=== PATIENT | male | born 1940 | race Caucasian/White ===

== ENCOUNTER 2021-12-22 15:05 | Inpatient (IN) ==
[2021-12-22] MEDS ORDERED: Naloxone 0.4 MG/ML INJ IVP PRN (21:43)
[2021-12-22] MEDS ORDERED: Acetaminophen 325 MG TABLET PO PRN (21:43)
[2021-12-22] MEDS ORDERED: Ondansetron 4 MG/2 ML VIAL IVP PRN (21:43)
[2021-12-22] MEDS ORDERED: Melatonin 3 MG TABLET PO PRN (21:43)
[2021-12-22] MEDS ORDERED: Ipratropium/Albuterol Neb 3 ML IH PRN (21:47)
[2021-12-22] MEDS ORDERED: Albuterol 2.5 MG/3 ML NEBULIZER IH PRN (21:47)
[2021-12-22] MEDS ORDERED: Benzonatate 100 MG CAPSULE PO PRN (21:48)
[2021-12-23] MEDS ORDERED: *HR* Dextrose 50 % in Water (Syg) 50 ML SYRINGE IVP PRN ×2 (07:10→19:11)
[2021-12-23] MEDS ORDERED: D5% in Water 1,000 ML IVC PRN ×2 (07:10→19:11)
[2021-12-23] MEDS ORDERED: Dextrose Gel 15 GM/37.5 ML TUBE PO PRN ×4 (07:10→19:11)
[2021-12-23] MEDS ORDERED: Remdesivir 200 MG in 0.9 % Sodium Chloride 100 ML IVPB ONE (07:25)
[2021-12-23 07:55] LABS: Basophils % 0.1 %; Hematocrit 41.6 % (37.5-50.1); Immature Granulocytes % 0.5 % (0-4); Lymphocytes # 0.9 K/mcL (0.6-4.6); Lymphocytes % 9.9 %; Mean Corpuscular HGB Conc 31.3 g/dL (31.6-35.5); Mean Corpuscular Hemoglobin 28.3 pg (28.0-33.3); Mean Corpuscular Volume 90.4 fL (83.0-100.0); Mean Platelet Volume 9.6 fL (9.4-12.4); Monocytes # 0.5 K/mcL (0.0-1.3); Monocytes % 5.2 %; Neutrophils # 7.5 K/mcL (1.6-8.9); Platelet Count 224 K/mcL (140-400); Red Cell Distribution Width 13.2 % (11.5-14.5); Segmented Neutrophils % 84.3 %; White Blood Count 8.9 K/mcL (4.3-11.1)
[2021-12-23 08:09] LABS: INR 1.2; Prothrombin Time 13.5 Seconds (9.4-12.1)
[2021-12-23 08:15] LABS: Alanine Aminotransferase 19 Units/L (7-52); Albumin 3.9 g/dL (3.5-5.7); Albumin/Globulin Ratio 1.4 (1.1-2.2); Alkaline Phosphatase 58 Units/L (34-104); Aspartate Amino Transferase 29 Units/L (13-39); BUN/Creatinine Ratio 19 (6-26); Bilirubin,Total 0.4 mg/dL (0.3-1.0); Blood Urea Nitrogen 16 mg/dL (8-23); Calcium 8.8 mg/dL (8.6-10.3); Carbon Dioxide 19 mEq/L (23-29); Chloride 104 mEq/L (98-107); Globulin 2.8 g/dL (2.4-3.5); Glucose 173 mg/dL (70-105); Magnesium 1.7 mg/dL (1.6-2.6); Osmolality,Calculated 293 (280-300); Phosphorous 2.7 mg/dL (2.7-4.5); Potassium 4.4 mEq/L (3.5-5.1); Sodium 139 mEq/L (136-145); Total Protein 6.7 g/dL (6.4-8.9); eGFR For African Americans > 60 (> 60); eGFR For Non-African Americans > 60 (> 60)
[2021-12-23] MEDS ORDERED: Vancomycin 1,000 MG VIAL ONE (09:53)
[2021-12-23] MEDS ORDERED: Ethanol\\Acetic Acid\\Na Ace\\Ben 1,000 ML IRRIG.SOLN IR ONE (09:53)
[2021-12-23] MEDS ORDERED: Insulin LISPRO 300 UNITS/3 ML VIAL SUBQ SCH (12:00)
[2021-12-23] MEDS ORDERED: *HR* FentaNYL (PF) 100 MCG/2 ML VIAL IVP PRN ×2 (14:04→19:11)
[2021-12-23] MEDS ORDERED: *HR* HYDROmorphone PF 0.5 MG/0.5 ML SYRINGE IVP PRN ×2 (14:04→19:11)
[2021-12-23] MEDS ORDERED: *HR* Propofol 200 MG/20 ML VIAL IVP ONE (14:06)
[2021-12-23] MEDS ORDERED: Lidocaine -MPF 2% 5 ML VIAL ONE (14:07)
[2021-12-23] MEDS ORDERED: *HR* Succinylcholine 200 MG/10 ML VIAL IVP ONE (14:07)
[2021-12-23] MEDS ORDERED: Ondansetron 4 MG/2 ML VIAL ONE (14:07)
[2021-12-23] MEDS ORDERED: Lidocaine HCL 4 ML Topical Solution (Laryng-O-Jet Kit Sterile Pak) TP ONE (14:07)
[2021-12-23] MEDS ORDERED: *HR* Rocuronium Bromide 50 MG/5 ML VIAL ONE (14:07)
[2021-12-23] MEDS ORDERED: EPHEDrine 50 MG/ML VIAL ONE (15:01)
[2021-12-23] MEDS ORDERED: *HR* Phenylephrine 10 MG/ML VIAL ONE (15:03)
[2021-12-23] MEDS ORDERED: *HR* Vasopressin 20 UNIT/ML VIAL ONE (15:05)
[2021-12-23] MEDS ORDERED: Albumin Human 5% 0 GM/0 ML IV.SOLN ONE (15:05)
[2021-12-23] MEDS ORDERED: *HR* Etomidate 40 MG/20 ML VIAL IVP ONE (15:42)
[2021-12-23] MEDS ORDERED: *HR* HYDROMORPHONE 2 MG/ML VIAL ONE (16:51)
[2021-12-23] MEDS ORDERED: Sugammadex Sodium 200 MG/2 ML VIAL IV ONE (16:57)
[2021-12-23] MEDS ORDERED: Naloxone 0.4 MG/ML INJ IVP PRN (19:11)
[2021-12-23] MEDS ORDERED: *HR* Promethazine 25 MG/ML VIAL IM PRN (19:11)
[2021-12-23] MEDS ORDERED: Acetaminophen 325 MG TABLET PO PRN (19:11)
[2021-12-23] MEDS ORDERED: Benzonatate 100 MG CAPSULE PO PRN (19:11)
[2021-12-23] MEDS ORDERED: Ipratropium/Albuterol Neb 3 ML IH PRN (19:11)
[2021-12-23] MEDS ORDERED: Melatonin 3 MG TABLET PO PRN (19:11)
[2021-12-23] MEDS ORDERED: Albuterol 2.5 MG/3 ML NEBULIZER IH PRN (19:11)
[2021-12-23] MEDS ORDERED: Ondansetron 4 MG/2 ML VIAL IVP PRN (19:11)
[2021-12-23] MEDS: Ringers Solution, Lactated 1,000 ML IVC SCH (20:21)
[2021-12-23] MEDS: CeFAZolin 2 GM/120 ML BAG IVPB SCH (23:46)
[2021-12-24] MEDS ORDERED: Insulin LISPRO 300 UNITS/3 ML VIAL SUBQ SCH
[2021-12-24 05:59] LABS: Basophils % 0.1 %; Hematocrit 39.5 % (37.5-50.1); Hemoglobin 12.8 g/dL (12.9-16.9); Immature Granulocytes % 0.2 % (0-4); Lymphocytes # 1.1 K/mcL (0.6-4.6); Lymphocytes % 11.1 %; Mean Corpuscular HGB Conc 32.4 g/dL (31.6-35.5); Mean Corpuscular Hemoglobin 28.8 pg (28.0-33.3); Mean Corpuscular Volume 88.8 fL (83.0-100.0); Mean Platelet Volume 9.5 fL (9.4-12.4); Monocytes # 0.5 K/mcL (0.0-1.3); Monocytes % 5.4 %; Neutrophils # 7.9 K/mcL (1.6-8.9); Platelet Count 236 K/mcL (140-400); Red Blood Count 4.45 M/mcL (4.19-5.50); Red Cell Distribution Width 13.2 % (11.5-14.5); Segmented Neutrophils % 83.2 %; White Blood Count 9.5 K/mcL (4.3-11.1)
[2021-12-24 06:18] LABS: Alanine Aminotransferase 17 Units/L (7-52); Albumin 3.5 g/dL (3.5-5.7); Albumin/Globulin Ratio 1.3 (1.1-2.2); Alkaline Phosphatase 51 Units/L (34-104); Aspartate Amino Transferase 28 Units/L (13-39); BUN/Creatinine Ratio 20 (6-26); Bilirubin,Direct 0.1 mg/dL (0.0-0.2); Bilirubin,Indirect 0.3 mg/dL (0.0-1.0); Bilirubin,Total 0.4 mg/dL (0.3-1.0); Blood Urea Nitrogen 19 mg/dL (8-23); Calcium 8.8 mg/dL (8.6-10.3); Carbon Dioxide 19 mEq/L (23-29); Chloride 108 mEq/L (98-107); Globulin 2.7 g/dL (2.4-3.5); Glucose 237 mg/dL (70-105); Osmolality,Calculated 300 (280-300); Potassium 4.8 mEq/L (3.5-5.1); Sodium 140 mEq/L (136-145); Total Protein 6.2 g/dL (6.4-8.9); eGFR For African Americans > 60 (> 60); eGFR For Non-African Americans > 60 (> 60)
[2021-12-24] MEDS ORDERED: Remdesivir 100 MG in 0.9 % Sodium Chloride 100 ML IVPB SCH (08:00)
[2021-12-24] MEDS: CeFAZolin 2 GM/120 ML BAG IVPB SCH (09:36)
[2021-12-24] MEDS: Ringers Solution, Lactated 1,000 ML IVC SCH (09:36)
[2021-12-24] MEDS: Insulin LISPRO 300 UNITS/3 ML VIAL SUBQ SCH ×4 (09:47→21:10)
[2021-12-24] MEDS: Remdesivir 100 MG in 0.9 % Sodium Chloride 100 ML IVPB SCH (11:58)
[2021-12-24] MEDS ORDERED: E-Z-PAQUE (BARIUM SULF) SUSP 1 BOTTLE PO ONE (14:21)
[2021-12-24] MEDS ORDERED: E-Z-HD (BARIUM SULF) SUSPENSION PO ONE (14:21)
[2021-12-24] MEDS: Aspirin 325 MG TABLET PO SCH (18:19)
[2021-12-25 09:11] LABS: Basophils % 0.2 %; Hematocrit 39.2 % (37.5-50.1); Hemoglobin 12.6 g/dL (12.9-16.9); Immature Granulocytes % 0.7 % (0-4); Lymphocytes # 0.9 K/mcL (0.6-4.6); Lymphocytes % 7.9 %; Mean Corpuscular HGB Conc 32.1 g/dL (31.6-35.5); Mean Corpuscular Hemoglobin 28.2 pg (28.0-33.3); Mean Corpuscular Volume 87.7 fL (83.0-100.0); Mean Platelet Volume 9.7 fL (9.4-12.4); Monocytes # 0.7 K/mcL (0.0-1.3); Monocytes % 6.1 %; Neutrophils # 9.3 K/mcL (1.6-8.9); Platelet Count 265 K/mcL (140-400); Red Blood Count 4.47 M/mcL (4.19-5.50); Red Cell Distribution Width 13.6 % (11.5-14.5); Segmented Neutrophils % 85.1 %; White Blood Count 10.9 K/mcL (4.3-11.1)
[2021-12-25 09:33] LABS: Alanine Aminotransferase 18 Units/L (7-52); Albumin 3.3 g/dL (3.5-5.7); Albumin/Globulin Ratio 1.2 (1.1-2.2); Alkaline Phosphatase 61 Units/L (34-104); Aspartate Amino Transferase 31 Units/L (13-39); BUN/Creatinine Ratio 31 (6-26); Bilirubin,Direct 0.2 mg/dL (0.0-0.2); Bilirubin,Indirect 0.2 mg/dL (0.0-1.0); Bilirubin,Total 0.4 mg/dL (0.3-1.0); Blood Urea Nitrogen 25 mg/dL (8-23); Calcium 9.2 mg/dL (8.6-10.3); Carbon Dioxide 17 mEq/L (23-29); Chloride 111 mEq/L (98-107); Globulin 2.8 g/dL (2.4-3.5); Glucose 275 mg/dL (70-105); Osmolality,Calculated 310 (280-300); Potassium 4.8 mEq/L (3.5-5.1); Sodium 143 mEq/L (136-145); Total Protein 6.1 g/dL (6.4-8.9); eGFR For African Americans > 60 (> 60); eGFR For Non-African Americans > 60 (> 60)
[2021-12-25] MEDS: Aspirin 325 MG TABLET PO SCH (09:40)
[2021-12-25] MEDS: Remdesivir 100 MG in 0.9 % Sodium Chloride 100 ML IVPB SCH (09:40)
[2021-12-25] MEDS: Insulin LISPRO 300 UNITS/3 ML VIAL SUBQ SCH ×3 (13:52→17:22)
[2021-12-25] MEDS ORDERED: Acetaminophen IV 1,000 MG/100 ML BAG IVPB ONE (16:51)
[2021-12-26 05:14] LABS: Basophils % 0.3 %; Immature Granulocytes % 5.8 % (0-4); Lymphocytes # 0.7 K/mcL (0.6-4.6); Lymphocytes % 6.3 %; Mean Corpuscular HGB Conc 32.5 g/dL (31.6-35.5); Mean Corpuscular Hemoglobin 28.9 pg (28.0-33.3); Mean Corpuscular Volume 88.9 fL (83.0-100.0); Mean Platelet Volume 10.1 fL (9.4-12.4); Monocytes # 0.7 K/mcL (0.0-1.3); Monocytes % 5.8 %; Platelet Count 336 K/mcL (140-400); Segmented Neutrophils % 81.8 %; White Blood Count 11.3 K/mcL (4.3-11.1)
[2021-12-26 05:21] LABS: Neutrophils # 9.2 K/mcL (1.6-8.9)
[2021-12-26 05:36] LABS: Alanine Aminotransferase 19 Units/L (7-52); Albumin 3.3 g/dL (3.5-5.7); Albumin/Globulin Ratio 1.1 (1.1-2.2); Alkaline Phosphatase 64 Units/L (34-104); Aspartate Amino Transferase 29 Units/L (13-39); BUN/Creatinine Ratio 43 (6-26); Bilirubin,Direct 0.1 mg/dL (0.0-0.2); Bilirubin,Indirect 0.4 mg/dL (0.0-1.0); Bilirubin,Total 0.5 mg/dL (0.3-1.0); Blood Urea Nitrogen 36 mg/dL (8-23); C-Reactive Protein > 300 mg/L (Less than 10); Calcium 9.4 mg/dL (8.6-10.3); Carbon Dioxide 17 mEq/L (23-29); Chloride 114 mEq/L (98-107); Globulin 3.1 g/dL (2.4-3.5); Glucose 322 mg/dL (70-105); Osmolality,Calculated 329 (280-300); Potassium 4.8 mEq/L (3.5-5.1); Sodium 149 mEq/L (136-145); Total Protein 6.4 g/dL (6.4-8.9); eGFR For African Americans > 60 (> 60); eGFR For Non-African Americans > 60 (> 60)
[2021-12-26 05:39] LABS: Platelet Estimate Normal (Normal)
[2021-12-26] MEDS: Insulin LISPRO 300 UNITS/3 ML VIAL SUBQ SCH ×5 (07:12→23:50)
[2021-12-26] MEDS: Remdesivir 100 MG in 0.9 % Sodium Chloride 100 ML IVPB SCH (08:11)
[2021-12-26] MEDS: Aspirin 325 MG TABLET PO SCH (08:17)
[2021-12-26] MEDS ORDERED: Acetaminophen 325 MG TABLET PO SCH (08:30)
[2021-12-26] MEDS: Acetaminophen IV 1,000 MG/100 ML BAG IVPB SCH ×3 (10:12→23:51)
[2021-12-26] MEDS ORDERED: Ringers Solution, Lactated 1,000 ML IVC SCH (13:30)
[2021-12-26] MEDS ORDERED: *HR* LORazepam 2 MG/ML VIAL IVP ONE (17:06)
[2021-12-26] MEDS ORDERED: Oxymetazoline Nasal SPRAY BOTTLE 15ML NS PRN (18:35)
[2021-12-26] MEDS ORDERED: Oxymetazoline Nasal SPRAY BOTTLE 15ML NS STA (18:35)
[2021-12-26] MEDS: *HR* HYDROmorphone (PF) 1 MG/ML SYRINGE IVP PRN (21:31)
[2021-12-27] MEDS: *HR* HYDROmorphone (PF) 1 MG/ML SYRINGE IVP PRN (02:26)
[2021-12-27 02:41] LABS: Basophils # 0.1 K/mcL (0.0-0.2); Basophils % 0.6 %; Hematocrit 43.5 % (37.5-50.1); Hemoglobin 13.7 g/dL (12.9-16.9); Immature Granulocytes % 1.8 % (0-4); Lymphocytes # 0.7 K/mcL (0.6-4.6); Lymphocytes % 5.7 %; Mean Corpuscular HGB Conc 31.5 g/dL (31.6-35.5); Mean Corpuscular Hemoglobin 28.5 pg (28.0-33.3); Mean Corpuscular Volume 90.6 fL (83.0-100.0); Mean Platelet Volume 10.2 fL (9.4-12.4); Monocytes % 7.9 %; Neutrophils # 10.1 K/mcL (1.6-8.9); Platelet Count 399 K/mcL (140-400); Red Cell Distribution Width 14.1 % (11.5-14.5); White Blood Count 12.1 K/mcL (4.3-11.1)
[2021-12-27 02:49] LABS: Albumin 3.4 g/dL (3.5-5.7); Albumin/Globulin Ratio 1.1 (1.1-2.2); BUN/Creatinine Ratio 43 (6-26); Bilirubin,Direct 0.1 mg/dL (0.0-0.2); Bilirubin,Indirect 0.3 mg/dL (0.0-1.0); Bilirubin,Total 0.4 mg/dL (0.3-1.0); Blood Urea Nitrogen 51 mg/dL (8-23); Calcium 10.1 mg/dL (8.6-10.3); Carbon Dioxide 25 mEq/L (23-29); Chloride 115 mEq/L (98-107); Globulin 3.2 g/dL (2.4-3.5); Glucose 351 mg/dL (70-105); Osmolality,Calculated 344 (280-300); Potassium 4.9 mEq/L (3.5-5.1); Sodium 153 mEq/L (136-145); Total Protein 6.6 g/dL (6.4-8.9); eGFR For African Americans > 60 (> 60); eGFR For Non-African Americans 59 (> 60)
[2021-12-27] MEDS ORDERED: Morphine Sulfate 2 MG/ML SYRINGE IVP ONE (03:27)
[2021-12-27] MEDS ORDERED: *HR* Heparin 5,000 UNIT/ML VIAL IVP PRN ×6 (03:34→14:37)
[2021-12-27] MEDS ORDERED: *HR* Heparin 5,000 UNIT/ML VIAL IVP ONE ×3 (03:34→14:37)
[2021-12-27] MEDS ORDERED: Heparin 25,000UNIT/250ML 1/2NS 25,000 UNIT/250 ML IV.SOLN IVC SCH ×2 (03:45→14:15)
[2021-12-27 05:52] LABS: Hematocrit 43.9 % (37.5-50.1); Hemoglobin 13.7 g/dL (12.9-16.9); Mean Corpuscular HGB Conc 31.2 g/dL (31.6-35.5); Mean Corpuscular Hemoglobin 28.4 pg (28.0-33.3); Mean Corpuscular Volume 90.9 fL (83.0-100.0); Mean Platelet Volume 10.3 fL (9.4-12.4); Platelet Count 385 K/mcL (140-400); Red Blood Count 4.83 M/mcL (4.19-5.50); Red Cell Distribution Width 14.2 % (11.5-14.5); White Blood Count 13.7 K/mcL (4.3-11.1)
[2021-12-27 05:55] LABS: Activated Partial Thrombo Time 23.3 Seconds (26.0-36.0)
[2021-12-27 05:56] LABS: Heparin anti-factor XA UFH < 0.04 IU/mL (0.30-0.70)
[2021-12-27 05:57] LABS: INR 1.2; Prothrombin Time 13.6 Seconds (9.4-12.1)
[2021-12-27] MEDS: Insulin LISPRO 300 UNITS/3 ML VIAL SUBQ SCH ×3 (06:28→17:59)
[2021-12-27] MEDS: Acetaminophen IV 1,000 MG/100 ML BAG IVPB SCH ×3 (10:53→23:53)
[2021-12-27] MEDS: Piperacillin/Tazobactam 3.375 GM in 0.9 % Sodium Chloride Mini Bag 100 ML IVPB SCH ×3 (12:24→23:53)
[2021-12-27] MEDS ORDERED: Albumin 25% 25gram/100mL 25 GM/100 ML IV.SOLN IVPB ONE (15:20)
[2021-12-27 15:34] LABS: Calcium 9.4 mg/dL (8.6-10.3); Potassium 6.1 mEq/L (3.5-5.1)
[2021-12-27] MEDS ORDERED: Dexmedetomidine HCl 400 MCG/100 ML MLS IVC ONE (15:59)
[2021-12-27] MEDS ORDERED: *HR* Etomidate 20 MG/10 ML AMPUL IVP ONE (16:00)
[2021-12-27] MEDS: Norepinephrine 4 MG/254 ML IV.SOLN IVC SCH (16:05)
[2021-12-27] MEDS ORDERED: Phenylephrine 10 MG in 0.9 % Sodium Chloride 250 ML IVC SCH (16:15)
[2021-12-27] MEDS ORDERED: Insulin Human Regular 10 UNIT in 0.9 % Sodium Chloride 10 ML IV ONE (16:30)
[2021-12-27] MEDS ORDERED: *HR* Dextrose 50 % in Water (Syg) 50 ML SYRINGE IVP ONE (16:30)
[2021-12-27] MEDS: Heparin 25,000UNIT/250ML 1/2NS 25,000 UNIT/250 ML IV.SOLN IVC SCH (16:48)
[2021-12-27] MEDS: Calcium Gluconate 1gm/50mL 1 GM/50 ML BAG IVPB SCH ×2 (16:54→17:45)
[2021-12-27 16:57] LABS: Basophils # 0.1 K/mcL (0.0-0.2); Basophils % 0.3 %; Hematocrit 44.3 % (37.5-50.1); Hemoglobin 13.2 g/dL (12.9-16.9); Immature Granulocytes % 5.3 % (0-4); Lymphocytes # 0.7 K/mcL (0.6-4.6); Lymphocytes % 4.2 %; Mean Corpuscular HGB Conc 29.8 g/dL (31.6-35.5); Mean Corpuscular Hemoglobin 28.4 pg (28.0-33.3); Mean Corpuscular Volume 95.3 fL (83.0-100.0); Mean Platelet Volume 10.3 fL (9.4-12.4); Monocytes % 6.1 %; Neutrophils # 13.7 K/mcL (1.6-8.9); Nucleated Red Blood Cells 0.2 /100 WBC (0); Platelet Count 386 K/mcL (140-400); Red Blood Count 4.65 M/mcL (4.19-5.50); Red Cell Distribution Width 14.6 % (11.5-14.5); Segmented Neutrophils % 84.1 %; White Blood Count 16.3 K/mcL (4.3-11.1)
[2021-12-27] MEDS ORDERED: *HR* Midazolam HCl 2 MG/2 ML VIAL ONE (17:00)
[2021-12-27] MEDS: D5% in Water 1,000 ML IVC SCH (17:10)
[2021-12-27] MEDS: Dexmedetomidine HCl 400 MCG/100 ML MLS IVC SCH (17:15)
[2021-12-27 17:20] LABS: ABG Base Excess 3 mEq/L (-2 to 3); ABG HCO3 29 mEq/L (21-27); ABG Oxygen Saturation 100 % (95-98); ABG PCO2 46 mmHg (35-45); ABG PO2 253 mmHg (85-104); ABG TCO2 30 mEq/L (20-26); Blood Gas Modality ASSIST CONTROL; Blood Gas VT 500 cc
[2021-12-27] MEDS: FentaNYL (PF) 1,000 MCG/100 ML IV.SOLN IVC SCH (17:36)
[2021-12-27] MEDS: Doxycycline 100 MG in 0.9 % Sodium Chloride Mini Bag 100 ML IVPB SCH (17:45)
[2021-12-27 17:51] LABS: Platelet Estimate Normal (Normal)
[2021-12-27] MEDS: Carbidopa/Levodopa 25/100 TABLET GTUBE SCH (19:45)
[2021-12-27] MEDS: Insulin DETEMIR 100 UNIT/ML X5UNITS SUBQ SCH (19:45)
[2021-12-27] MEDS ORDERED: Artificial Tears SOLN 15 ML BOTTLE BOTH EYES PRN (19:47)
[2021-12-27] MEDS: Artificial Tears SOLN 15 ML BOTTLE BOTH EYES SCH ×2 (20:26→23:51)
[2021-12-27] MEDS: Chlorhexidine Rinse 15 ML MOUTHWASH MM SCH (20:27)
[2021-12-27 20:47] LABS: ABG Base Excess -1 mEq/L (-2 to 3); ABG HCO3 25 mEq/L (21-27); ABG Oxygen Saturation 99 % (95-98); ABG PCO2 46 mmHg (35-45); ABG PH 7.35 pH Units (7.32-7.45); ABG PO2 122 mmHg (85-104); ABG TCO2 26 mEq/L (20-26); Blood Gas VT 500 cc
[2021-12-27 21:42] LABS: Calcium 8.3 mg/dL (8.6-10.3); Potassium 4.9 mEq/L (3.5-5.1)
[2021-12-27 23:27] LABS: Troponin I 0.3 ng/mL (< 0.04)
[2021-12-27] MEDS: Phenylephrine 50 MG in 0.9 % Sodium Chloride 250 ML IVC SCH (23:51)
[2021-12-28] MEDS: Insulin LISPRO 300 UNITS/3 ML VIAL SUBQ SCH ×4 (00:18→17:37)
[2021-12-28] MEDS: Carbidopa/Levodopa 25/100 TABLET GTUBE SCH ×5 (00:18→20:14)
[2021-12-28] MEDS: FentaNYL (PF) 1,000 MCG/100 ML IV.SOLN IVC SCH ×2 (03:22→14:22)
[2021-12-28] MEDS: D5% in Water 1,000 ML IVC SCH ×3 (03:23→23:33)
[2021-12-28] MEDS: Dexmedetomidine HCl 400 MCG/100 ML MLS IVC SCH ×4 (03:45→19:29)
[2021-12-28] MEDS: Artificial Tears SOLN 15 ML BOTTLE BOTH EYES SCH ×7 (03:47→23:35)
[2021-12-28 04:55] LABS: Hematocrit 42.6 % (37.5-50.1); Mean Corpuscular HGB Conc 30.5 g/dL (31.6-35.5); Mean Corpuscular Hemoglobin 28.6 pg (28.0-33.3); Mean Corpuscular Volume 93.6 fL (83.0-100.0); Mean Platelet Volume 10.8 fL (9.4-12.4); Nucleated Red Blood Cells 0.6 /100 WBC (0); Platelet Count 256 K/mcL (140-400); Red Blood Count 4.55 M/mcL (4.19-5.50); Red Cell Distribution Width 14.6 % (11.5-14.5); White Blood Count 17.3 K/mcL (4.3-11.1)
[2021-12-28 05:00] LABS: Heparin anti-factor XA UFH 0.54 IU/mL (0.30-0.70)
[2021-12-28 05:07] LABS: ABG Base Excess -1 mEq/L (-2 to 3); ABG HCO3 24 mEq/L (21-27); ABG Oxygen Saturation 99 % (95-98); ABG PCO2 41 mmHg (35-45); ABG PH 7.38 pH Units (7.32-7.45); ABG PO2 136 mmHg (85-104); ABG TCO2 26 mEq/L (20-26); Blood Gas VT 500 cc
[2021-12-28 05:55] LABS: Lymphocytes # 1.4 K/mcL (0.6-4.6); Monocytes # 0.4 K/mcL (0.0-1.3); Neutrophils # 15.6 K/mcL (1.6-8.9); Platelet Estimate Normal (Normal)
[2021-12-28 06:03] LABS: Aspartate Amino Transferase > 3000 Units/L (13-39); Carbon Dioxide 26 mEq/L (23-29); Chloride 113 mEq/L (98-107); Potassium 5.4 mEq/L (3.5-5.1); Sodium 151 mEq/L (136-145)
[2021-12-28 06:04] LABS: Alanine Aminotransferase 330 Units/L (7-52); Albumin 2.9 g/dL (3.5-5.7); Alkaline Phosphatase 57 Units/L (34-104); BUN/Creatinine Ratio 21 (6-26); Bilirubin,Direct 0.1 mg/dL (0.0-0.2); Bilirubin,Indirect 0.4 mg/dL (0.0-1.0); Bilirubin,Total 0.5 mg/dL (0.3-1.0); Blood Urea Nitrogen 81 mg/dL (8-23); Calcium 8.6 mg/dL (8.6-10.3); Glucose 369 mg/dL (70-105); Osmolality,Calculated 351 (280-300); Total Protein 5.9 g/dL (6.4-8.9); eGFR For African Americans 19 (> 60); eGFR For Non-African Americans 15 (> 60)
[2021-12-28] MEDS: Doxycycline 100 MG in 0.9 % Sodium Chloride Mini Bag 100 ML IVPB SCH ×2 (06:11→17:06)
[2021-12-28] MEDS: Pantoprazole 40 MG VIAL IVP SCH (07:39)
[2021-12-28] MEDS: Chlorhexidine Rinse 15 ML MOUTHWASH MM SCH ×2 (07:39→20:14)
[2021-12-28] MEDS: Piperacillin/Tazobactam 3.375 GM in 0.9 % Sodium Chloride Mini Bag 100 ML IVPB SCH ×3 (08:10→23:29)
[2021-12-28] MEDS: Acetaminophen IV 1,000 MG/100 ML BAG IVPB SCH ×3 (08:11→23:25)
[2021-12-28 10:08] LABS: INR 1.6; Prothrombin Time 17.6 Seconds (9.4-12.1)
[2021-12-28 10:17] LABS: Calcium 8.3 mg/dL (8.6-10.3); Potassium 5.4 mEq/L (3.5-5.1)
[2021-12-28 10:37] LABS: Troponin I 3.8 ng/mL (< 0.04)
[2021-12-28 10:49] LABS: Alanine Aminotransferase 214 Units/L (7-52); Albumin 2.9 g/dL (3.5-5.7); Alkaline Phosphatase 57 Units/L (34-104); Aspartate Amino Transferase > 3000 Units/L (13-39); Bilirubin,Direct 0.1 mg/dL (0.0-0.2); Bilirubin,Indirect 0.3 mg/dL (0.0-1.0); Bilirubin,Total 0.4 mg/dL (0.3-1.0); Globulin 2.9 g/dL (2.4-3.5); Total Protein 5.8 g/dL (6.4-8.9)
[2021-12-28] MEDS: Albumin Human 5% 12.5 GM/250 ML IV.SOLN IVC SCH ×2 (10:50→13:10)
[2021-12-28 12:06] LABS: Amorphous Sediment,Urine Few per hpf (None-Few); Bacteria,Urine Few per hpf (None-Few); Bilirubin,Urine Negative (Negative); Blood,Urine Moderate (Negative); Clarity,Urine Ex.Turbid (Clear); Color,Urine Yellow (Yellow); Glucose,Urine (UA) 50 mg/dL (Normal); Ketones,Urine Trace mg/dL (Negative); Leukocyte Esterase,Urine Negative (Negative); Mucus,Urine Few per lpf (None-Few); Nitrite,Urine Negative (Negative); Protein,Urine >=300 mg/dL (Neg-Trace); Specific Gravity,Urine > 1.030 (1.010-1.025); Urobilinogen,Urine Normal (Normal)
[2021-12-28 12:34] LABS: Protein/Creatinine Ratio,Urine 2.48 mg/mg (0.00-0.20); Sodium, Urine 32.8 mEq/L
[2021-12-28] MEDS: Phenylephrine 50 MG in 0.9 % Sodium Chloride 250 ML IVC SCH ×2 (13:08→20:10)
[2021-12-28] MEDS: Norepinephrine 4 MG/254 ML IV.SOLN IVC SCH (15:36)
[2021-12-28] MEDS: Heparin 25,000UNIT/250ML 1/2NS 25,000 UNIT/250 ML IV.SOLN IVC SCH (17:54)
[2021-12-28] MEDS: Insulin DETEMIR 100 UNIT/ML X5UNITS SUBQ SCH (20:41)
[2021-12-29] MEDS: Insulin LISPRO 300 UNITS/3 ML VIAL SUBQ SCH ×6 (00:21→22:09)
[2021-12-29] MEDS: FentaNYL (PF) 1,000 MCG/100 ML IV.SOLN IVC SCH ×3 (00:42→21:53)
[2021-12-29] MEDS: Dexmedetomidine HCl 400 MCG/100 ML MLS IVC SCH ×3 (02:11→20:39)
[2021-12-29 03:57] LABS: Basophils # 0.1 K/mcL (0.0-0.2); Basophils % 0.3 %; Hematocrit 36.2 % (37.5-50.1); Lymphocytes % 4.9 %; Mean Corpuscular HGB Conc 30.4 g/dL (31.6-35.5); Mean Corpuscular Hemoglobin 28.3 pg (28.0-33.3); Mean Corpuscular Volume 93.1 fL (83.0-100.0); Mean Platelet Volume 11.1 fL (9.4-12.4); Monocytes # 0.5 K/mcL (0.0-1.3); Monocytes % 2.4 %; Neutrophils # 17.5 K/mcL (1.6-8.9); Nucleated Red Blood Cells 0.2 /100 WBC (0); Platelet Count 151 K/mcL (140-400); Red Blood Count 3.89 M/mcL (4.19-5.50); Red Cell Distribution Width 14.5 % (11.5-14.5); Segmented Neutrophils % 88.4 %; White Blood Count 19.8 K/mcL (4.3-11.1)
[2021-12-29 04:21] LABS: Calcium 7.3 mg/dL (8.6-10.3); Potassium 4.8 mEq/L (3.5-5.1)
[2021-12-29 05:21] LABS: ABG Base Excess -4 mEq/L (-2 to 3); ABG HCO3 22 mEq/L (21-27); ABG Oxygen Saturation 100 % (95-98); ABG PCO2 39 mmHg (35-45); ABG PH 7.35 pH Units (7.32-7.45); ABG PO2 171 mmHg (85-104); ABG TCO2 23 mEq/L (20-26); Blood Gas Modality ASSIST CONTROL; Blood Gas VT 500 cc
[2021-12-29] MEDS: Doxycycline 100 MG in 0.9 % Sodium Chloride Mini Bag 100 ML IVPB SCH ×2 (05:47→17:09)
[2021-12-29] MEDS: Chlorhexidine Rinse 15 ML MOUTHWASH MM SCH ×2 (07:15→20:42)
[2021-12-29] MEDS: Pantoprazole 40 MG VIAL IVP SCH (07:15)
[2021-12-29] MEDS: Piperacillin/Tazobactam 3.375 GM in 0.9 % Sodium Chloride Mini Bag 100 ML IVPB SCH ×2 (07:16→17:09)
[2021-12-29] MEDS: Carbidopa/Levodopa 25/100 TABLET GTUBE SCH ×4 (07:16→20:44)
[2021-12-29] MEDS: Artificial Tears SOLN 15 ML BOTTLE BOTH EYES SCH ×5 (07:17→23:26)
[2021-12-29] MEDS: Acetaminophen IV 1,000 MG/100 ML BAG IVPB SCH (08:25)
[2021-12-29] MEDS: D5% in Water 1,000 ML IVC SCH ×2 (08:28→16:37)
[2021-12-29] MEDS: Heparin 25,000UNIT/250ML 1/2NS 25,000 UNIT/250 ML IV.SOLN IVC SCH (10:31)
[2021-12-29] MEDS: Remdesivir 100 MG in 0.9 % Sodium Chloride 100 ML IVPB SCH (10:50)
[2021-12-29] MEDS ORDERED: Perflutren Lipid Microsphere 1.3 ML in 0.9 % Sodium Chloride 8.7 ML IVP PRN (11:20)
[2021-12-29] MEDS ORDERED: Bumetanide 1 MG TABLET GTUBE ONE (11:22)
[2021-12-29] MEDS: Bumetanide 12 MG in 0.9 % Sodium Chloride 48 ML IVC SCH (11:55)
[2021-12-29] MEDS ORDERED: Insulin LISPRO 300 UNITS/3 ML VIAL SUBQ SCH (12:00)
[2021-12-29 12:22] LABS: Creatine Kinase 1695 Units/L (30-223)
[2021-12-29] MEDS: Norepinephrine 4 MG/254 ML IV.SOLN IVC SCH (12:38)
[2021-12-29] MEDS ORDERED: Insulin DETEMIR 100 UNIT/ML X5UNITS SUBQ ONE (13:30)
[2021-12-29 14:59] LABS: Alanine Aminotransferase 126 Units/L (7-52); Albumin 2.7 g/dL (3.5-5.7); Albumin/Globulin Ratio 1.1 (1.1-2.2); Alkaline Phosphatase 57 Units/L (34-104); Aspartate Amino Transferase > 3000 Units/L (13-39); BUN/Creatinine Ratio 20 (6-26); Bilirubin,Total 0.6 mg/dL (0.3-1.0); Blood Urea Nitrogen 108 mg/dL (8-23); Calcium 7.3 mg/dL (8.6-10.3); Carbon Dioxide 21 mEq/L (23-29); Chloride 107 mEq/L (98-107); Globulin 2.4 g/dL (2.4-3.5); Glucose 277 mg/dL (70-105); Osmolality,Calculated 336 (280-300); Sodium 141 mEq/L (136-145); Total Protein 5.1 g/dL (6.4-8.9); eGFR For African Americans 12 (> 60); eGFR For Non-African Americans 10 (> 60)
[2021-12-29] MEDS ORDERED: *HR* Metoprolol 5 MG/5 ML VIAL IVP ONE ×2 (20:12→20:14)
[2021-12-29] MEDS: Insulin DETEMIR 100 UNIT/ML X5UNITS SUBQ SCH (21:04)
[2021-12-30] MEDS: Insulin LISPRO 300 UNITS/3 ML VIAL SUBQ SCH ×4 (00:18→12:29)
[2021-12-30] MEDS: Heparin 25,000UNIT/250ML 1/2NS 25,000 UNIT/250 ML IV.SOLN IVC SCH (01:14)
[2021-12-30] MEDS: Artificial Tears SOLN 15 ML BOTTLE BOTH EYES SCH ×5 (04:05→20:56)
[2021-12-30 04:10] LABS: Lymphocytes % 3.4 %; Monocytes % 2.7 %; Nucleated Red Blood Cells 0.4 /100 WBC (0); Red Cell Distribution Width 14.6 % (11.5-14.5)
[2021-12-30 04:12] LABS: Basophils % 0.1 %; Hematocrit 40.4 % (37.5-50.1); Hemoglobin 12.6 g/dL (12.9-16.9); Immature Granulocytes % 5.3 % (0-4); Mean Corpuscular HGB Conc 31.2 g/dL (31.6-35.5); Mean Corpuscular Hemoglobin 28.5 pg (28.0-33.3); Mean Corpuscular Volume 91.4 fL (83.0-100.0); Mean Platelet Volume 11.9 fL (9.4-12.4); Monocytes # 0.9 K/mcL (0.0-1.3); Neutrophils # 29.8 K/mcL (1.6-8.9); Platelet Count 214 K/mcL (140-400); Red Blood Count 4.42 M/mcL (4.19-5.50); Segmented Neutrophils % 88.5 %
[2021-12-30 04:13] LABS: Lymphocytes # 1.2 K/mcL (0.6-4.6)
[2021-12-30 04:16] LABS: White Blood Count 33.7 K/mcL (4.3-11.1)
[2021-12-30 04:20] LABS: VBG Ionized Calcium 0.95 mmol/L (1.15-1.35)
[2021-12-30 04:23] LABS: Calcium 7.3 mg/dL (8.6-10.3); Potassium 5.5 mEq/L (3.5-5.1)
[2021-12-30 04:25] LABS: Albumin 2.7 g/dL (3.5-5.7); Bilirubin,Direct 0.2 mg/dL (0.0-0.2); Bilirubin,Indirect 0.3 mg/dL (0.0-1.0); Bilirubin,Total 0.5 mg/dL (0.3-1.0); Globulin 2.6 g/dL (2.4-3.5); Magnesium 2.1 mg/dL (1.6-2.6); Phosphorous 7.4 mg/dL (2.7-4.5); Total Protein 5.3 g/dL (6.4-8.9)
[2021-12-30 04:36] LABS: ABG Base Excess -6 mEq/L (-2 to 3); ABG HCO3 19 mEq/L (21-27); ABG Oxygen Saturation 98 % (95-98); ABG PCO2 36 mmHg (35-45); ABG PH 7.34 pH Units (7.32-7.45); ABG PO2 109 mmHg (85-104); ABG TCO2 20 mEq/L (20-26); Blood Gas VT 500 cc
[2021-12-30 05:00] LABS: Platelet Estimate Normal (Normal)
[2021-12-30] MEDS: Doxycycline 100 MG in 0.9 % Sodium Chloride Mini Bag 100 ML IVPB SCH (05:28)
[2021-12-30] MEDS: Piperacillin/Tazobactam 3.375 GM in 0.9 % Sodium Chloride Mini Bag 100 ML IVPB SCH (05:29)
[2021-12-30] MEDS: D5% in Water 1,000 ML IVC SCH ×2 (06:16→12:29)
[2021-12-30] MEDS: Insulin DETEMIR 100 UNIT/ML X5UNITS SUBQ SCH (08:27)
[2021-12-30] MEDS: Carbidopa/Levodopa 25/100 TABLET GTUBE SCH ×2 (08:27→12:29)
[2021-12-30] MEDS: Chlorhexidine Rinse 15 ML MOUTHWASH MM SCH ×2 (08:27→20:56)
[2021-12-30] MEDS: Pantoprazole 40 MG VIAL IVP SCH (08:37)
[2021-12-30] MEDS: FentaNYL (PF) 1,000 MCG/100 ML IV.SOLN IVC SCH ×2 (08:39→17:54)
[2021-12-30] MEDS ORDERED: Dexamethasone Sodium Phos/PF 10 MG/ML VIAL IVP SCH (09:00)
[2021-12-30] MEDS: Phenylephrine 50 MG in 0.9 % Sodium Chloride 250 ML IVC SCH (09:12)
[2021-12-30] MEDS: Bumetanide 12 MG in 0.9 % Sodium Chloride 48 ML IVC SCH (10:40)
[2021-12-30 12:24] VITALS: TEMP 100.2
[2021-12-30] MEDS: Norepinephrine 4 MG/254 ML IV.SOLN IVC SCH (13:15)
[2021-12-30] MEDS: Dexmedetomidine HCl 400 MCG/100 ML MLS IVC SCH (15:26)
[2021-12-30] MEDS ORDERED: *HR* LORazepam 2 MG/ML VIAL IVP PRN (15:32)
[2021-12-30] MEDS ORDERED: Glycopyrrolate 0.2 MG/ML VIAL IVP PRN (15:35)
[2021-12-30 20:37] VITALS: BP 0/0; PULSE 0; O2SAT 0
== END 2021-12-30 20:29 | disposition expired | DRG 521 ==
LOC: 4WAOSI → 3ANU → SUATTDRO 12-23 14:29 → 2NENU 12-26 16:17 → ICNU 12-27 16:15
PROVIDERS: ADMIT Student in an Organized Health Care Education/Training Program; ATTEND Student in an Organized Health Care Education/Training Program